=== PATIENT | male | born 1955 | race Caucasian/White ===

== ENCOUNTER 2022-05-23 15:52 | Day surgery (SDC) | payer MEDICARE ==
[~2022-05-23] VITALS: Ht 182.9 cm; Wt 61.9 kg
[2022-05-23 16:06] VITALS: BP 101/62
[2022-05-23] MEDS ORDERED: normal saline 1000ml 1,000 ML IV PRN (16:20)
[2022-05-23 16:42] VITALS: BP 118/69
--- NOTE | 2022-05-23 16:42 | NUR ---
Patient stable for discharge s/p g-tube exchange. Patient a/o x 4 with stable vital signs. No sedation given during procedure. Patient ambulatory at time of discharge.
== END 2022-05-23 16:45 | disposition home or self-care (01) ==
LOC: SSTAY O 15:52
PROVIDERS: ATTEND Radiology Vascular & Interventional Radiology
DX: K94.23 Gastrostomy malfunction (principal); C09.9 Malignant neoplasm of tonsil, unspecified; F32.A Depression, unspecified; Z88.6 Allergy status to analgesic agent; Z98.890 Other specified postprocedural states; Z90.49 Acquired absence of other specified parts of digestive tract; Z80.49 Family history of malignant neoplasm of other genital organs; Y83.8 Other surgical procedures as the cause of abnormal reaction of the patient, or of later complication, without mention of misadventure at the time of the procedure; Z88.8 Allergy status to other drugs, medicaments and biological substances
CPT/HCPCS: 49450; B4087; C1769; J7030; A4620

== ENCOUNTER 2022-08-22 12:48 | Outpatient (CLI) | payer MEDICARE ==
[2022-08-22] MEDS ORDERED: BARIUM SULFATE 340 ML SUSP.RECON***PROCEDURE AREA ONLY**DONT ENTER PO ONE (16:00)
== END 2022-08-22 23:59 | disposition home or self-care (01) ==
LOC: RAD 12:48
PROVIDERS: ATTEND Speech-Language Pathologist
DX: R13.12 Dysphagia, oropharyngeal phase (principal); R13.14 Dysphagia, pharyngoesophageal phase; K21.9 Gastro-esophageal reflux disease without esophagitis; R47.1 Dysarthria and anarthria; R49.0 Dysphonia; C85.89 Other specified types of non-Hodgkin lymphoma, extranodal and solid organ sites
CPT/HCPCS: 74230

== ENCOUNTER 2022-09-03 08:50 | Day surgery (SDC) | payer MEDICARE ==
[~2022-09-03] VITALS: Ht 182.9 cm; Wt 68.2 kg
[2022-09-03] VITALS (22 sets, daily range): BP systolic 102–147; BP diastolic 64–95
[2022-09-03] MEDS ORDERED: normal saline 1000ml 1,000 ML IV PRN (09:30)
[2022-09-03 09:51] LABS: EOSINOPHILS # (AUTO) 0.1 X10'3 (0-0.9); EOSINOPHILS % (AUTO) 1.9 % (0-6); HEMATOCRIT 40.3 % (42.0-52.0); HEMOGLOBIN 13.4 g/dl (14.0-17.9); LYMPHOCYTES # (AUTO) 0.4 X10'3 (1.1-4.8); LYMPHOCYTES % (AUTO) 7.8 % (21-51); MEAN CORPUSCULAR HEMOGLOBIN 31.7 PG (27.0-31.0); MEAN CORPUSCULAR HGB CONC 33.3 g/dL (33.0-36.5); MEAN PLATELET VOLUME 7.9 FL (7.4-10.4); MONOCYTES # (AUTO) 0.6 X10'3 (0-0.9); MONOCYTES % (AUTO) 12.7 % (2-12); NEUTROPHILS # (AUTO) 3.5 X10'3 (1.8-7.7); NEUTROPHILS % (AUTO) 76.6 % (42-75); PLATELET COUNT 250 X10'3 (140-440); RED BLOOD COUNT 4.25 X10'6 (4.70-6.10); RED CELL DISTRIBUTION WIDTH 12.2 % (11.5-14.5); WHITE BLOOD COUNT 4.6 X10'3 (4.5-11.0)
[2022-09-03] MEDS ORDERED: fentaNYL/PF 50MCG/1 ML 2ML syringe ONE (09:54)
[2022-09-03] MEDS ORDERED: midazolam 1 mg/ML 2ml injection ONE (09:54)
[2022-09-03 10:01] LABS: APTT 24 SECONDS (22-32)
[2022-09-03] MEDS ORDERED: AMOX-580 PO (10:09)
[2022-09-03] MEDS ORDERED: CYCL-1 PO (10:09)
[2022-09-03] MEDS ORDERED: LIDO15SO6 PO (10:09)
[2022-09-03] MEDS ORDERED: GABA-530 PO (10:09)
[2022-09-03] MEDS ORDERED: ESCI20TA39 PO (10:09)
[2022-09-03] MEDS ORDERED: HYDR-3964 PO (10:09)
[2022-09-03] MEDS ORDERED: MSC30T PO (10:09)
[2022-09-03] MEDS ORDERED: IBUP100O21 PO (10:09)
[2022-09-03] MEDS ORDERED: sodium chloride 0.45% 1,000 ML IV SCH (10:15)
[2022-09-03] MEDS ORDERED: acetaminophen 325mg tablet PO ONE (11:45)
[2022-09-03] MEDS ORDERED: HYDROcodone/acetaminophen 5mg/325mg tablet PO PRN (11:45)
== END 2022-09-03 14:16 | disposition home or self-care (01) ==
LOC: SSTAY O 08:50
PROVIDERS: ATTEND Radiology Diagnostic Radiology
DX: R91.8 Other nonspecific abnormal finding of lung field (principal); C34.32 Malignant neoplasm of lower lobe, left bronchus or lung; Z85.819 Personal history of malignant neoplasm of unspecified site of lip, oral cavity, and pharynx; Z93.1 Gastrostomy status; Z88.8 Allergy status to other drugs, medicaments and biological substances; Z79.01 Long term (current) use of anticoagulants; Z79.899 Other long term (current) drug therapy
CPT/HCPCS: 32408; 36415; 71045; 85025; 85730; J2250; J3010; J3490; J7030; 77012; 88305; 88341; 88342; A4421; A4615; A6258; C1729; C1769